=== PATIENT | female | born 1945 | race Caucasian/White ===

== ENCOUNTER 2016-08-20 09:27 | Inpatient (IN) | payer BC, OTHER ==
[2016-08-06 13:36] VITALS: BMI 25.0
--- NOTE | 2016-08-06 14:17 | PAT Medication Instructions ---
Service Date Aug 06, 2016. Current Home Medication List Acetaminophen (Tylenol Arthitis Ext Rel), 650 MG PO BID PRN for Pain Beclomethasone Dipropionate (N (Qnasl), 1-2 SPRY RADHA BID PRN for N Cetirizine (Zyrtec), 10 MG PO QAM Fluoxetine (Prozac), 20 MG PO QAM Naproxen (Aleve), 220 MG PO BID PRN for RN Nifedipine Ext Rel (Procardia Xl Ext Rel), 30 MG PO QAM Nortriptyline (Pamelor), 25 MG PO HS Omeprazole (Prilosec), 40 MG PO HS Pilocarpine (Salagen), 5 MG PO QAM Simvastatin (Zocor), 1 TAB PO HS Medication Instructions For Your Scheduled Surgery - Hold the following medications 7 days prior to surgery per surgeon instructions: Naproxen (Aleve), 220 MG PO BID PRN - Hold the following medications the morning of surgery: Cetirizine (Zyrtec), 10 MG PO QAM Pilocarpine (Salagen), 5 MG PO QAM - Take the following medications the morning of surgery with a sip of water: Nifedipine Ext Rel (Procardia Xl Ext Rel), 30 MG PO QAM Fluoxetine (Prozac), 20 MG PO QAM Beclomethasone Dipropionate (N (Qnasl), 1-2 SPRY RADHA BID PRN (if needed) Acetaminophen (Tylenol Arthitis Ext Rel), 650 MG PO BID PRN for Pain (if needed) - Take the following medications as scheduled the night before surgery: Simvastatin (Zocor), 1 TAB PO HS Nortriptyline (Pamelor), 25 MG PO HS Omeprazole (Prilosec), 40 MG PO HS Beclomethasone Dipropionate (N (Qnasl), 1-2 SPRY RADHA BID PRN (if needed) Acetaminophen (Tylenol Arthitis Ext Rel), 650 MG PO BID PRN for Pain (if needed) If you have any questions please call us at [phone] or [phone] ( [place]) or [phone]
[2016-08-06 14:51] LABS: BASO % 0.5 %; BASO ABS # 0.03 K/uL (0-0.2); COMPLETE YES; EOS % 1.4 %; HEMATOCRIT 38.4 % (37-47); IG% 0.3 %; LYMPH % 22.4 %; LYMPH ABS # 1.42 K/uL (1.2-3.4); MEAN CELL VOLUME 93.7 fL (80-100); MEAN CORPUSCULAR HEMOGLOBIN 30.7 pg (25-34); MEAN CORPUSCULAR HGB CONC 32.8 g/dl (32-36); MEAN PLATELET VOLUME 9.6 fL (7.4-10.4); MONO % 8.7 %; NEUT % 66.7 %; PLATELET COUNT 263 K/uL (130-400); WHITE BLOOD COUNT 6.34 K/uL (4.8-10.8)
--- NOTE | 2016-08-06 14:52 | DIAGNOSTIC IMAGING REPORT ---
CHEST PREADMISSION(PA/LAT) CLINICAL HISTORY: PAT preoperative evaluation COMPARISON STUDY: No previous studies for comparison. FINDINGS: The bones soft tissues and hemidiaphragms are normal. The cardiomediastinal silhouette is normal. The lungs are clear. The pulmonary vasculature is normal. IMPRESSION: Negative chest. Electronically signed by: Kavon Ellison M.D. 08/06/2016 2:51 PM Dictated Date/Time: 08/06/2016 2:51 PM
[2016-08-06 14:56] LABS: URINE APPEARANCE CLEAR (CLEAR); URINE BILIRUBIN NEG (NEG); URINE COLOR YELLOW; URINE NITRITE NEG (NEG); URINE PH 5.5 (4.5-7.5); URINE SPECIFIC GRAVITY 1.021 (1.000-1.030); UROBILINOGEN NEG (NEG)
[2016-08-06 15:03] LABS: MANUAL MICROSCOPIC REQUIRED? NO; REVIEW REQ? NO
[2016-08-06 15:05] LABS: INR 0.9 (0.9-1.1); PARTIAL THROMBOPLASTIN RATIO 0.9; PROTHROMBIN TIME (PATIENT) 10.1 SECONDS (9.0-12.0)
[2016-08-06 15:11] LABS: BUN/CREATININE RATIO 22.2 (10-20); CALCIUM 8.6 mg/dl (8.5-10.1); CREATININE 0.68 mg/dl (0.60-1.20); POTASSIUM 3.5 mmol/L (3.5-5.1)
--- NOTE | 2016-08-19 15:02 | HISTORY & PHYSICAL EXAMINATION ---
DATE OF ADMISSION: 08/20/2016 CHIEF COMPLAINT: Right hip pain. HISTORY OF PRESENT ILLNESS: Ms. Sommer is a 71-year-old female with a 6- to 9- month history of pain in her right hip. The patient rates her pain a 7/10. She has pain with her daily activities. She has limited standing and walking tolerance. Pain is worse with weightbearing. The patient has had physical therapy, anti-inflammatories and spinal injections over the years without relief. She has failed conservative treatment and is scheduled for right hip replacement. 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 SOCIAL HISTORY: The patient drinks alcohol. She denies tobacco use. She lives in a single gabby home. She is and retired. FAMILY HISTORY: Positive for DVT in her sister, status post hip replacement. MEDICATIONS: Aleve 220 mg twice daily, fluoxetine 20 mg daily, omeprazole 20 mg twice daily, Procardia 30 mg daily, QNASL 80 mcg 2 sprays each nostril daily, simvastatin 20 mg daily, Zyrtec 10 mg daily. ALLERGIES: LATEX. REVIEW OF SYSTEMS: See HPI. Ten other systems reviewed, all negative. PHYSICAL EXAMINATION: VITAL SIGNS: Height 5 feet 1 inch, weight 133 pounds, BMI 24. GENERAL: This is a well-developed, well-nourished female who is alert and oriented x3. Mood and affect are appropriate. HEENT: Normocephalic, atraumatic. Mucous membranes are moist and intact. NECK: Supple without lymphadenopathy. HEART: Regular rate and rhythm without murmurs, rubs or gallops. LUNGS: Clear to auscultation without wheezes or rhonchi. ABDOMEN: Soft and nontender. Bowel sounds are equal and active. EXTREMITIES: No ecchymosis, redness or warmth. Thigh and calf are soft and nontender. Log roll of the hip reproduces pain in the groin. She is neurovascularly intact with +5/5 strength. X-RAY EXAMINATION: AP and lateral views show joint space narrowing and osteophyte formation of the right hip. IMPRESSION: Degenerative joint disease, right hip. PLAN: The patient will be admitted for a right total hip arthroplasty, direct anterior approach. We will plan on aspirin for DVT prophylaxis. PCP is Dr. Gisselle Pelaez in [place]. [facility]
[~2016-08-20] VITALS: Ht 154.9 cm; Wt 60.6 kg
[2016-08-20] VITALS (9 sets, daily range): BP systolic 93–117; BP diastolic 57–75; PULSE 79–101; TEMP 36.6–36.9; O2SAT 93–100; Ht 154.9 cm; Wt 60.6 kg
[~2016-08-20 09:27] MED LIST: ACETAMINOPHEN 500 MG TAB PO SCH; BECL1AER5 NAE; BUPIVACAINE 0.5 % 5 MG/1 ML PF 10ML VIAL ONE; CEFAZOLIN 2000 MG/60 ML D5W 60 ML IV SCH; CETI10TA84 PO; CeleBREX 200 MG CAP PO SCH; DEXAMETHASONE 4 MG TAB PO SCH; FAMOTIDINE 20 MG TAB PO SCH; FLUO20CA35 PO; GABAPENTIN 300 MG CAP PO SCH; LACTATED RINGER'S 1000ML 1,000 ML IV SCH; LACTATED RINGER'S 1000ML 500 ML IV ONE; LACTATED RINGER'S 1000ML IV SCH; METOCLOPRAMIDE HCL 10 MG TAB PO SCH; NAPR1TAB9 PO; NIFE30TA83 PO; NORT25CA PO; OMEP40CA PO; OXYCODONE HCL 10 MG TABCR (OXYCONTIN) PO SCH; PILO5TAB10 PO; POLYMYXIN B SULFATE 100,000 UNITS in NSS 100ML IR SCH; ROPIVACAINE 5MG/ML 30 ML 150 MG, BUPIVACAINE/EPINEPHR 0.5% MPF 30 ML, KETOROLAC TROMETH... INFIL SCH; SIMV20TA2 PO; TYLER650 PO; VANCOMYCIN INJ 400 MG in NSS 100ML IR SCH
[2016-08-20] MEDS ORDERED: MIDAZOLAM HCL 1 MG/ML 2ML VIAL ONE (10:58)
[2016-08-20] MEDS ORDERED: FENTANYL CITRATE INJ 50 MCG/1 ML 2 ML VIAL ONE (10:58)
--- NOTE | 2016-08-20 11:02 | History & Physical Bridge Note ---
H&P Re-Evaluation Bridge Note: I have examined the patient, reviewed the History & Physical and in the interval since the performance of the History & Physical I have noted the following changes of clinical significance: No changes noted
[2016-08-20] MEDS ORDERED: ORTHO JOINT ANESTHETIC ONE (11:29)
[2016-08-20] MEDS ORDERED: POVIDONE-IODINE OP SOLN 30 ML BTL ONE (11:30)
[2016-08-20] MEDS ORDERED: BACITRACIN 50000 UNIT VIAL ONE (11:30)
[2016-08-20] MEDS ORDERED: LACTATED RINGER'S 1000ML 1,000 ML IV PRN (11:39)
[2016-08-20] MEDS ORDERED: ONDANSETRON INJ 2 MG/ML 2 ML VIAL IV PRN ×2 (11:45→13:45)
[2016-08-20] MEDS ORDERED: FENTANYL CITRATE INJ 50 MCG/1 ML 2 ML VIAL IV PRN (11:45)
[2016-08-20] MEDS ORDERED: PROPOFOL IV EMULSION 10 MG/ML 20 ML VIAL IV ONE (12:35)
[2016-08-20] MEDS ORDERED: LIDOCAINE HCL 2% 2 ML VIAL (20MG/ML) ONE (12:35)
[2016-08-20] MEDS ORDERED: PHENYLEPHRINE 100MCG/ML 5ML SYR ONE ×2 (12:35→13:54)
--- NOTE | 2016-08-20 13:43 | [facility] Post Operative Brief Note ---
Immediate Operative Summary Operative Date Aug 20, 2016. Pre-Operative Diagnosis Right hip degenerative joint disease Post-Operative Diagnosis Right hip degenerative joint disease Procedure(s) Performed Right total hip arthoplasty, anterior approach Surgeon Dr. Herve Shah Envelope Sealer Operator Surgeon(s) Yakelin Eugene PA-C Estimated Blood Loss 50 cc Findings DJD Specimens A: Right femoral head Complication(s) None Disposition Recovery Room / PACU
--- NOTE | 2016-08-20 13:44 | DIAGNOSTIC IMAGING REPORT ---
INTRAOPERATIVE RADIOGRAPH CLINICAL HISTORY: Right hip arthroplasty. Fluoroscopy time: 9 seconds. FINDINGS: A single spot fluoroscopic view of the right hip from an arthroplasty procedure is presented. A bipolar right hip arthroplasty is in near-anatomic alignment. A single cortical lag screw transfixes the acetabular cup. There is no evidence of acute fracture on this fluoroscopic image. IMPRESSION: Intraoperative image from a right hip arthroplasty procedure as above. Electronically signed by: Edmar Almazan M.D. 08/20/2016 1:42 PM Dictated Date/Time: 08/20/2016 1:41 PM
[2016-08-20] MEDS ORDERED: ZOLPIDEM TARTRATE 5 MG TAB PO PRN (13:45)
[2016-08-20] MEDS ORDERED: METOCLOPRAMIDE HCL INJ 5 MG/ML 2 ML VIAL IV PRN (13:45)
[2016-08-20] MEDS ORDERED: MAGNESIUM HYDROXIDE SUSP 30 ML UDC PO PRN (13:45)
[2016-08-20] MEDS ORDERED: ALUMINUM/MAGNESIUM/SIMETH (MAALOX MAX) 30 ML UDC PO PRN (13:45)
[2016-08-20] MEDS ORDERED: TRAMADOL HCL 50 MG TAB PO PRN (13:45)
[2016-08-20] MEDS ORDERED: MoRPHine SULFATE 2 MG/ML CARP IV PRN (13:45)
[2016-08-20] MEDS ORDERED: SOD PHOSPHATE/SOD BIPHOSPHATE ENEMA 132 ML BTL PR PRN (13:45)
[2016-08-20] MEDS ORDERED: DiphenhydrAMINE HCL 50 MG/ML VIAL IV PRN (13:45)
[2016-08-20] MEDS ORDERED: BISACODYL 10 MG SUPP PR PRN (13:45)
[2016-08-20] MEDS ORDERED: ONDANSETRON INJ 2 MG/ML 2 ML VIAL ONE (13:54)
--- NOTE | 2016-08-20 14:33 | DIAGNOSTIC IMAGING REPORT ---
SINGLE VIEW PELVIS; SINGLE VIEW RIGHT HIP CLINICAL HISTORY: Postoperative examination. FINDINGS: An AP portable view of the hips and lower pelvis with a crosstable lateral portable view of the right hip are obtained. A bipolar right hip arthroplasty is in near-anatomic alignment. A single cortical lag screw transfixes the acetabular cup. No acute fracture is seen. There are expected postoperative changes overlying the right hip including subcutaneous gas, soft tissue swelling, and a surgical drain. Mild to moderate arthritic change is noted in the left hip. Clips are present in the pelvis. IMPRESSION: Expected postoperative findings status post right hip arthroplasty. No fracture is seen. Electronically signed by: Edmar Almazan M.D. 08/20/2016 2:32 PM Dictated Date/Time: 08/20/2016 2:31 PM
--- NOTE | 2016-08-20 14:43 | Anesthesiology Progress Note ---
Anesthesia Post Op Note Date & Time Aug 20, 2016 at 14:43 Vital Signs Pain Intensity: 0 Vital Signs Past 12 Hours Date Time Temp Pulse Resp B/P Pulse Ox O2 Delivery O2 Flow Rate FiO2 08/20/16 14:35 36.7 91 12 91/55 96 Nasal Cannula 2 08/20/16 14:25 92 12 95/61 97 Nasal Cannula 2 08/20/16 14:15 93 12 97/65 98 Nasal Cannula 2 08/20/16 14:07 36.2 96 16 92/63 94 Nasal Cannula 2 08/20/16 10:14 98 Room Air 08/20/16 10:00 36.8 101 20 117/75 Notes Mental Status: alert / awake / arousable, participated in evaluation Pt Amnestic to Procedure: Yes Nausea / Vomiting: adequately controlled Pain: adequately controlled Airway Patency, RR, SpO2: stable & adequate BP & HR: stable & adequate Hydration State: stable & adequate Neuraxial Anesthesia: was administered, sensory block is resolving Anesthetic Complications: no major complications apparent Pt doing well.
--- NOTE | 2016-08-20 16:29 | OPERATIVE REPORT ---
DATE OF OPERATION: 08/20/2016 PREOPERATIVE DIAGNOSIS: Degenerative arthritis, right hip. POSTOPERATIVE DIAGNOSIS: Same. PROCEDURE: Right total hip replacement. SURGEON: Phuc Shah MD ORTHO RN: RAO Navarro ANESTHESIA: Spinal. BLOOD LOSS: 50 mL. REPLACEMENT FLUIDS: 1500 mL crystalloid. DRAINS: Hemovac x2. CULTURES: None. COMPLICATIONS: None. COMPONENTS USED: [employer] hip system: Acetabulum size 50, femur size 5 standard offset, femoral head 0, neck length 32 mm. NOTE: RAO Navarro was present and assisted throughout due to the complicated nature of this case. She helped with preparation and set up. She first assisted throughout and personally closed the fascial, subcutaneous and skin layers and applied the postoperative dressing. DESCRIPTION OF PROCEDURE: Following satisfactory spinal, the patient was supine. The right leg was placed in traction device and the left leg in the well leg ceron. Right leg was then prepared with ChloraPrep and draped sterilely. Following a surgical time-out, an anterior approach in the interval between the sartorius and tensor muscles was completed. The circumflex femoral vessels were identified and ligated. An anterior capsulotomy was performed exposing the arthritic femoral neck and head. Femoral neck and head were trimmed and removed. The acetabular self-retraining retractor was placed. Acetabular preparation was completed and with reaming under fluoroscopic guidance, a 50 shell was impacted into an anatomic position and secured with a dome screw. Local anesthetic was placed and after irrigation, the polyethylene liner was placed. The femur was placed in a position of external rotation, extension and adduction. Femoral canal was identified and prepared up to the size 5. A trial reduction using a 0 neck length head with fluoroscopy showed leg lengths restored using anatomic landmarks and good fit and fill of the proximal canal. The hip was dislocated. The trial component was removed. Local anesthetic was placed and after irrigation, the final implant was placed and reduced with similar findings. A Betadine soak was performed for 5 minutes. After the 5 minutes, the Betadine was irrigated. A drain was placed. The capsule was closed with #1 Vicryl interrupted, the fascia with a running suture of #1 Vicryl, the subcutaneous tissues with 2-0 Vicryl and the skin with a running subcuticular stitch of 3-0 V-Loc. Dermabond and dry dressing were applied. The patient was returned to her bed in stable condition. I attest to the content of the Intraoperative Record and any orders documented therein. Any exceptio ns are noted below.
[2016-08-20] MEDS: D5W AND 1/2NSS + 20MEQ KCL 1,000 ML IV SCH (16:49)
[2016-08-20] MEDS: OXYCODONE HCL IR 5 MG TAB (IMMEDIATE RELEASE) PO PRN ×2 (16:50→23:31)
[2016-08-20] MEDS: TRANEXAMIC ACID INJ 1,000 MG in SODIUM CHLORIDE 0.9% 100ML 100 ML IV SCH ×2 (17:59→18:00)
[2016-08-20] MEDS: KETOROLAC TROMETHAMINE 15 MG/ML VIAL IV. SCH ×2 (18:27→23:32)
[2016-08-20] MEDS: CEFAZOLIN IV 1,000 MG in DEXTROSE 5% 50ML 50 ML IV SCH (20:23)
[2016-08-20] MEDS ORDERED: SENNA 8.6 MG TAB PO SCH (21:00)
[2016-08-20] MEDS ORDERED: NORTRIPTYLINE HCL 25 MG CAP PO SCH (21:00)
[2016-08-20] MEDS ORDERED: SIMVASTATIN 20 MG TAB PO SCH (21:00)
[2016-08-20] MEDS: ASPIRIN 81 MG ECTAB PO SCH (21:18)
[2016-08-20] MEDS: ACETAMINOPHEN 500 MG TAB PO SCH (21:20)
[2016-08-21] MEDS: D5W AND 1/2NSS + 20MEQ KCL 1,000 ML IV SCH ×2 (01:40→12:00)
[2016-08-21 03:40] VITALS: BP 91/58; PULSE 69; TEMP 36.7; O2SAT 95
[2016-08-21] MEDS: CEFAZOLIN IV 1,000 MG in DEXTROSE 5% 50ML 50 ML IV SCH (03:57)
[2016-08-21 04:33] VITALS: BP 104/65
[2016-08-21 05:38] LABS: COMPLETE YES; HEMATOCRIT 28.7 % (37-47); IG% 0.2 %; LYMPH % 14.1 %; LYMPH ABS # 1.19 K/uL (1.2-3.4); MEAN CELL VOLUME 91.4 fL (80-100); MEAN CORPUSCULAR HEMOGLOBIN 30.3 pg (25-34); MEAN CORPUSCULAR HGB CONC 33.1 g/dl (32-36); MEAN PLATELET VOLUME 9.4 fL (7.4-10.4); MONO % 5.1 %; NEUT % 80.6 %; PLATELET COUNT 221 K/uL (130-400); RED BLOOD COUNT 3.14 M/uL (4.2-5.4); WHITE BLOOD COUNT 8.45 K/uL (4.8-10.8)
[2016-08-21] MEDS: KETOROLAC TROMETHAMINE 15 MG/ML VIAL IV. SCH ×2 (05:39→12:10)
[2016-08-21] MEDS: ACETAMINOPHEN 500 MG TAB PO SCH ×2 (05:40→14:45)
[2016-08-21 06:18] LABS: BUN/CREATININE RATIO 15.9 (10-20); CALCIUM 8.1 mg/dl (8.5-10.1); CREATININE 0.68 mg/dl (0.60-1.20)
[2016-08-21 07:33] VITALS: BP 106/68; PULSE 85; TEMP 36.7; O2SAT 95
--- NOTE | 2016-08-21 07:55 | Orthopedic Progress Note ---
Orthopedic Progress Note Date of Service Aug 21, 2016. Subjective Post OP Day: 1 Reports: feeling well, pain controlled w PO medications, Denies: SOB, chest pain , complaints, light headedness, nausea / vomiting Objective calves soft nontender, hip located, dressing C/D/I, A&O x3, toes mobile, hemovac drainage (100 LAST SHIFT ) Date Time Temp Pulse Resp B/P Pulse Ox O2 Delivery O2 Flow Rate FiO2 08/21/16 07:33 36.7 85 16 106/68 95 Room Air 08/21/16 07:22 Room Air 08/21/16 04:33 104/65 08/21/16 03:40 36.7 69 16 91/58 95 Room Air 08/20/16 23:36 36.8 79 16 108/62 96 Room Air 08/20/16 23:25 Room Air 08/20/16 20:01 36.6 99 18 102/65 93 Room Air 08/20/16 18:35 36.9 91 16 95/59 93 Room Air 08/20/16 17:39 36.7 92 16 93/57 98 Room Air 08/20/16 16:34 36.7 90 16 97/62 100 Nasal Cannula 2.0 08/20/16 16:07 36.6 100 16 110/68 94 Room Air 08/20/16 15:35 Nasal Cannula 2.0 08/20/16 15:35 96 Nasal Cannula 2.0 08/20/16 15:35 98 18 101/67 96 Nasal Cannula 2.0 08/20/16 15:15 94 14 101/57 96 Nasal Cannula 2 08/20/16 15:00 92 11 102/60 96 Nasal Cannula 2 08/20/16 14:45 96 16 108/62 97 Nasal Cannula 2 08/20/16 14:35 36.7 91 12 91/55 96 Nasal Cannula 2 08/20/16 14:25 92 12 95/61 97 Nasal Cannula 2 08/20/16 14:15 93 12 97/65 98 Nasal Cannula 2 08/20/16 14:07 36.2 96 16 92/63 94 Nasal Cannula 2 08/20/16 10:14 98 Room Air 08/20/16 10:00 36.8 101 20 117/75 Laboratory Results 24 Hours: Test 08/21/16 05:21 White Blood Count 8.45 K/uL Red Blood Count 3.14 M/uL Hemoglobin 9.5 g/dL Hematocrit 28.7 % Mean Corpuscular Volume 91.4 fL Mean Corpuscular Hemoglobin 30.3 pg Mean Corpuscular Hemoglobin Concent 33.1 g/dl Platelet Count 221 K/uL Mean Platelet Volume 9.4 fL Neutrophils (%) (Auto) 80.6 % Lymphocytes (%) (Auto) 14.1 % Monocytes (%) (Auto) 5.1 % Eosinophils (%) (Auto) 0.0 % Basophils (%) (Auto) 0.0 % Neutrophils # (Auto) 6.81 K/uL Lymphocytes # (Auto) 1.19 K/uL Monocytes # (Auto) 0.43 K/uL Eosinophils # (Auto) 0.00 K/uL Basophils # (Auto) 0.00 K/uL Assessment & Plan Assessment: POD 1 BJORN Plan: HOME TODAY [facility] Inhouse Planning Pain Management: Celebrex, PO Tylenol, Oxy IR DVT Prophylaxis: TEDs, SCDs, ASA Discharge Planning Discharge Planning: home with home health Pain Management: Celebrex, PO Tylenol, Oxy IR DVT Prophylaxis: TEDs, ASA
[2016-08-21] MEDS ORDERED: RXC5 PO (08:18)
[2016-08-21] MEDS ORDERED: ONDA8TAB6 PO (08:18)
[2016-08-21] MEDS ORDERED: ASPEC81 PO (08:18)
[2016-08-21] MEDS ORDERED: SNK PO (08:18)
[2016-08-21] MEDS ORDERED: ACET-1138 PO (08:18)
[2016-08-21] MEDS ORDERED: CLB200 PO (08:18)
--- NOTE | 2016-08-21 08:19 | Discharge Instructions ---
Discharge Instructions Admission Reason for Admission: Right Hip Osteoarthritis Discharge Discharge Diagnosis / Problem: SP RIGHT BJORN Discharge Goals Goal(s): Decrease discomfort, Improve function, Increase independence Activity Recommendations Activity Limitations: per Instructions/Follow-up section . Instructions / Follow-Up Instructions / Follow-Up ACTIVITY RECOMMENDATIONS: SELF CARE INSTRUCTIONS AFTER TOTAL HIP REPLACEMENT : Direct Anterior Approach Until the incision and soft tissues around your hip have healed, there is a possibility that the hip prosthesis could dislocate. A. Hip flexion ( Up & Down out of chair or steps ) may be difficult. This is normal. B. Numbness in front of the thigh is also normal for a few weeks. C. Use hand rails when walking on stairs. D. Wear low heeled shoes with non-slip soles. E. Be sure that your floors are free of things that could trip you - throw rugs , electrical cords, small objects. Avoid wet and waxed floors, especially with crutches and canes. F. Try to walk several times a day with rest periods between. G. Continue with all the exercises taught to you in the hospital. Again, make walking a part of your daily routine. SPECIAL CARE INSTRUCTIONS: VERY IMPORTANT TO READ AND REVIEW A. You may still be at risk for phlebitis and blood clots. 1. Wear surgical stockings (RAVEN hose) for 2 weeks after surgery to improve circulation and reduce swelling. 2. Take Aspirin 81mg twice daily for 4 weeks or as directed by your doctor. This is your blood thinner. 3. High risk patients may be prescribed a stronger blood thinner if necessary. 4. If you are on Coumadin normally, your family doctor/weight loss sales consultant should monitor your blood work. Expect a phone call the day of or the day after bloodwork is drawn to adjust your dosage. B. You must take antibiotics before having dental work, bladder, bowel and other surgery. Your doctor will provide you with a permanent card to carry describing precautions. C. Call [facility] if you have a fever, redness or swelling around the incision, cloudy drainage from incision, or sudden increase in pain in your hip, not relieved by your regular pain medication. D. Please call the office at if you have any concerns or questions about your operation or recovery. * YOU MAY SHOWER, NO TUB BATHS UNTIL CLEARED BY YOUR DOCTOR. - Keep an extra close eye on the top portion of your incision. Be sure to keep clean & dry. * WEAR RAVEN HOSE 20 HOURS PER DAY FOR 2 WEEKS. * YOU MAY PROGRESS FROM A WALKER, TO A CANE, TO INDEPENDENT AT YOUR OWN PACE. * MOST PATIENTS WILL HAVE HOME NURSING FOR THERAPY. IF YOU DECIDE TO DO OUTPATIENT PHYSICAL THERAPY, PLEASE SCHEDULE THIS 3 TIMES PER WEEK. * DERMABOND Prineo- This is a mesh tape dressing that is covered with glue. It should remain in place until the incision is properly healed, usually 10-14 days. This dressing is designed to naturally slough off. You may trim the excess mesh tape as it peels off. Incision may be briefly wet in a shower. Dry immediately by blotting with a clean, dry towel. Do not bath or swim until instructed by your doctor. Do not scratch, rub, or pick at the dressing. Do not apply any topical ointments or lotions until dressing is completely removed and/or instructed by your doctor. There may be a small piece of suture material at one end of your incision. Do not pull or trim this. If it is bothersome or catching on clothing, you may cover it with a band-aid. FOLLOW UP VISIT: If appointment is not already scheduled: Please call [facility] to make a follow-up appointment for 2 weeks after your surgery at . Current Hospital Diet Patient's current hospital diet: Regular Diet Discharge Diet Recommended Diet: Regular Diet Procedures Procedures Performed: Right total hip arthoplasty, anterior approach Pending Studies Studies pending at discharge: no Medical Emergencies . Who to Call and When: Medical Emergencies: If at any time you feel your situation is an emergency, please call 911 immediately. . Non-Emergent Contact Non-Emergency issues call your: Primary Care Provider . "Provider Documentation" section prepared by Gracy Eugene. VTE Core Measure Inpt VTE Proph given/why not?: Other Anticoagulation, T.E.D. Stockings, SCD's [place] Drug Monitoring Program Search Results: patient reviewed within database, no issues identified
[2016-08-21] MEDS: OXYCODONE HCL IR 5 MG TAB (IMMEDIATE RELEASE) PO PRN ×2 (08:36→16:56)
[2016-08-21] MEDS: ASPIRIN 81 MG ECTAB PO SCH (08:36)
[2016-08-21] MEDS ORDERED: NIFEdipine 30 MG CR TAB PO SCH (09:00)
[2016-08-21] MEDS ORDERED: MULTIVITAMIN TAB PO SCH (09:00)
[2016-08-21] MEDS ORDERED: FLUOXETINE HCL 20 MG CAP PO SCH (09:00)
[2016-08-21] MEDS ORDERED: PILOCARPINE HCL 5 MG TAB PO SCH (09:00)
[2016-08-21] MEDS ORDERED: PANTOprazole SOD 40 MG TAB PO SCH (09:00)
[2016-08-21] MEDS ORDERED: CETIRIZINE HCL 10 MG TAB PO SCH (09:00)
[2016-08-21 11:00] VITALS: BP 113/69; PULSE 86; TEMP 36.8; O2SAT 100
--- NOTE | 2016-08-21 14:17 | Anesthesiology Progress Note ---
Anesthesia Post Op Note Date & Time Aug 21, 2016 at 14:16 Vital Signs Pain Intensity: 4.0 Vital Signs Past 12 Hours Date Time Temp Pulse Resp B/P Pulse Ox O2 Delivery O2 Flow Rate FiO2 08/21/16 11:00 36.8 86 16 113/69 100 Room Air 08/21/16 07:33 36.7 85 16 106/68 95 Room Air 08/21/16 07:22 Room Air 08/21/16 04:33 104/65 08/21/16 03:40 36.7 69 16 91/58 95 Room Air Notes Mental Status: alert / awake / arousable, participated in evaluation Pt Amnestic to Procedure: Yes Nausea / Vomiting: adequately controlled Pain: adequately controlled Airway Patency, RR, SpO2: stable & adequate BP & HR: stable & adequate Hydration State: stable & adequate Neuraxial Anesthesia: was administered, sensory block resolved Anesthetic Complications: no major complications apparent
[2016-08-21 15:20] VITALS: BP 100/63; PULSE 95; TEMP 36.8; O2SAT 94
[2016-08-21 16:31] VITALS: BP 100/63; PULSE 95; TEMP 36.8; O2SAT 94
[2016-08-22] MEDS ORDERED: CeleBREX 200 MG CAP PO SCH (21:00)
--- NOTE | 2016-08-30 14:17 | DISCHARGE SUMMARY ---
DISCHARGE DIAGNOSIS: Degenerative joint disease, right hip. SECONDARY DIAGNOSIS: None. CONSULTS: None. COMPLICATIONS: None. PROCEDURE: The patient underwent a right total hip arthroplasty, direct anterior by Dr. Shah on 08/20/2016. BRIEF HISTORY: Please see previously dictated history and physical. HOSPITAL SUMMARY: The patient was admitted on the above day for the above procedure. Procedure went without complication. Postop day 1, the patient was feeling well without complaints. She denied chest pain or shortness of breath. Vital signs were stable. She was afebrile. Dressing was clean, dry and intact. She was neurovascularly intact. Calves were soft and nontender. Hemovac drained 100 mL. Hemoglobin was 9.5. The patient began physical therapy per protocol. She was discharged later that day with home health in stable condition. For further review please see the chart. Lab, x-ray data and discharge instructions as per chart.
== END 2016-08-21 17:04 | disposition home health service (06) | DRG 470 ==
LOC: ENRESERVDT → ENRESERVTM → C.ACU 09:27 → C.3E 11:00 → UNDOADMIN 13:48
PROVIDERS: ADMIT Orthopaedic Surgery; ATTEND Orthopaedic Surgery
PROC: 0SR904Z Replacement of Right Hip Joint with Ceramic on Polyethylene Synthetic Substitute, Open Approach (ICD-10-PCS; principal; 2016-08-20 11:45)
DX: M16.11 Unilateral primary osteoarthritis, right hip (principal); E78.00 Pure hypercholesterolemia, unspecified; K21.9 Gastro-esophageal reflux disease without esophagitis; I73.00 Raynaud's syndrome without gangrene; M35.00 Sjogren syndrome, unspecified; Z86.718 Personal history of other venous thrombosis and embolism; Z79.1 Long term (current) use of non-steroidal anti-inflammatories (NSAID); Z79.899 Other long term (current) drug therapy

== ENCOUNTER → 2016-12-04 | Outpatient (CLI) | payer BC ==
[~2016-12-04] MED LIST changes: +ACET-1138 PO; -ACETAMINOPHEN 500 MG TAB PO SCH; +ASPEC81 PO; -BUPIVACAINE 0.5 % 5 MG/1 ML PF 10ML VIAL ONE; -CEFAZOLIN 2000 MG/60 ML D5W 60 ML IV SCH; +CLB200 PO; -CeleBREX 200 MG CAP PO SCH; -DEXAMETHASONE 4 MG TAB PO SCH; -FAMOTIDINE 20 MG TAB PO SCH; -GABAPENTIN 300 MG CAP PO SCH; -LACTATED RINGER'S 1000ML 1,000 ML IV SCH; -LACTATED RINGER'S 1000ML 500 ML IV ONE; -LACTATED RINGER'S 1000ML IV SCH; -METOCLOPRAMIDE HCL 10 MG TAB PO SCH; -NAPR1TAB9 PO; +ONDA8TAB6 PO; -OXYCODONE HCL 10 MG TABCR (OXYCONTIN) PO SCH; -POLYMYXIN B SULFATE 100,000 UNITS in NSS 100ML IR SCH; -ROPIVACAINE 5MG/ML 30 ML 150 MG, BUPIVACAINE/EPINEPHR 0.5% MPF 30 ML, KETOROLAC TROMETH... INFIL SCH; +RXC5 PO; +SNK PO; -TYLER650 PO; -VANCOMYCIN INJ 400 MG in NSS 100ML IR SCH
== END | disposition home or self-care (01) ==
LOC: C.LABMFLN 12:11
PROVIDERS: ATTEND Physician Assistant
DX: J02.9 Acute pharyngitis, unspecified (principal)

== ENCOUNTER → 2017-10-27 | Outpatient (CLI) | payer BC ==
[~2017-10-27] MED LIST changes: -ASPEC81 PO; +ASPI-320 PO; -ONDA8TAB6 PO
[2017-10-27 12:58] LABS: BASO % 0.7 %; BASO ABS # 0.03 K/uL (0-0.2); EOS % 3.5 %; EOS ABS # 0.14 K/uL (0-0.5); HEMATOCRIT 38.1 % (37-47); HEMOGLOBIN 12.3 g/dL (12.0-16.0); LYMPH % 24.6 %; LYMPH ABS # 0.99 K/uL (1.2-3.4); MEAN CELL VOLUME 90.5 fL (80-100); MEAN CORPUSCULAR HEMOGLOBIN 29.2 pg (25-34); MEAN CORPUSCULAR HGB CONC 32.3 g/dl (32-36); MEAN PLATELET VOLUME 9.8 fL (7.4-10.4); MONO % 12.2 %; MONO ABS # 0.49 K/uL (0.11-0.59); NEUT ABS # 2.38 K/uL (1.4-6.5); PLATELET COUNT 272 K/uL (130-400); RED CELL DISTRIBUTION WIDTH CV 14.2 % (11.5-14.5); RED CELL DISTRIBUTION WIDTH SD 46.4 fL (36.4-46.3); WHITE BLOOD COUNT 4.03 K/uL (4.8-10.8)
[2017-10-27 13:26] LABS: ALBUMIN 3.8 gm/dl (3.4-5.0); ALT/SGPT 20 U/L (12-78); AST/SGOT 23 U/L (15-37); BLOOD UREA NITROGEN 16 mg/dl (7-18); CALCIUM 8.4 mg/dl (8.5-10.1); CARBON DIOXIDE 26 mmol/L (21-32); CHOLESTEROL 187 mg/dl (0-200); CREATININE 0.68 mg/dl (0.60-1.20); GLUCOSE 77 mg/dl (70-99); POTASSIUM 3.6 mmol/L (3.5-5.1); SODIUM 140 mmol/L (136-145)
[2017-10-27 13:36] LABS: ALKALINE PHOSPHATASE 71 U/L (45-117); LDL CHOLESTEROL CALCULATED 72 mg/dl; TOTAL PROTEIN 7.1 gm/dl (6.4-8.2)
== END | disposition home or self-care (01) ==
LOC: C.LABMFLN 07:28
PROVIDERS: ATTEND Family Medicine
DX: K21.9 Gastro-esophageal reflux disease without esophagitis (principal); M81.0 Age-related osteoporosis without current pathological fracture; G47.10 Hypersomnia, unspecified